=== PATIENT | female | born 1970 | race American Indian/Alaskan Native ===

== ENCOUNTER 2016-09-25 13:16 | Emergency (ER) | payer MEDICARE, OTHER ==
[2016-09-25 13:18] VITALS: BMI 34.4
[2016-09-25 13:36] VITALS: BP 160/89; PULSE 71; RESP 20; TEMP 97.5; O2SAT 97
--- NOTE | 2016-09-25 15:25 | RAD ---
Lumbar spine three views History: Injury. Comparison: 07/24/2015 Findings: Again identified is a large lobulated radiopaque mass seen within the right hemipelvis. This is of uncertain clinical etiology and may represent a large calcified fibroid lesion however additional etiologies not excluded. Clinical correlation. Prominent vascular calcifications. Moderate fecal retention in the colon. Prominent vascular calcifications in the pelvis. Again identified are prominent areas of sclerosis seen most prominently noted at the vertebral body endplates. This is of uncertain clinical etiology and may be metabolic in etiology. Additional etiologies not excluded. Clinical correlation. Prominent atherosclerotic calcification in the aorta. Severe degenerative changes again noted centered at the L4-5 disc space with prominent endplate sclerosis as well as anterior and posterior osteophytosis. Again identified is loss of height of the inferior endplates of the T12, L1, L3, L4, and L5 vertebral bodies as well as the superior endplates of the T12, L1, L2, L3, and L5 vertebral bodies. Multilevel lower level facet hypertrophy and sclerosis. Prominent sclerosis of the bilateral SI joints, left greater than right. Impression: Again identified is a large lobulated radiopaque mass seen within the right hemipelvis. This is of uncertain clinical etiology and may represent a large calcified fibroid lesion however additional etiologies not excluded. Clinical correlation. Again identified are prominent areas of sclerosis seen most prominently noted at the vertebral body endplates. This is of uncertain clinical etiology and may be metabolic in etiology. Additional etiologies not excluded. Clinical correlation. Severe degenerative changes again noted centered at the L4-5 disc space with prominent endplate sclerosis as well as anterior and posterior osteophytosis. Again identified is loss of height of the inferior endplates of the T12, L1, L3, L4, and L5 vertebral bodies as well as the superior endplates of the T12, L1, L2, L3, and L5 vertebral bodies. Multilevel lower level facet hypertrophy and sclerosis. Prominent sclerosis of the bilateral SI joints, left greater than right. If pain persists, consider MRI.
--- NOTE | 2016-09-25 16:17 | C.PDOC ---
History Of Present Illness Patient is a 46 year old female who presents to the ER with a complaint of non- radiating back pain after a wagon of bananas fell on her. Patient states she was in [employer] walking when the banana wagon tipped over and hit her twice on the back, denies falling. Denies any abdominal pain, numbness, or tingling. Time Seen by Provider: 09/25/16 13:28 Chief Complaint (Nursing): Back Pain History Per: Patient Onset/Duration Of Symptoms: Hrs Current Symptoms Are (Timing): Still Present Pain Scale Rating Of: 4 Past Medical History Reviewed: Historical Data, Nursing Documentation, Vital Signs Vital Signs: Last Vital Signs Temp 97.5 F L 09/25/16 13:35 Pulse 71 09/25/16 13:35 Resp 20 09/25/16 13:35 BP 160/89 H 09/25/16 13:35 Pulse Ox 97 09/25/16 16:21 - Medical History PMH: Anemia, Bronchitis, Cardia Arrhythmia, HTN, Hypothyroidism, End Stage Renal Disease (DIALYSIS M-W-F), Chronic Kidney Disease Surgical History: Endoscopy, Tonsillectomy - [facility] Procedures ANGIOPLASTY OF OTHER NON-CORONARY VESSEL(S) (06/07/12) CONTR ABD ARTERIOGRM NEC (11/21/13) CONTRAST ARTERIOGRAM NEC (11/21/13) CONTRAST PHLEBOGRAM NEC (06/07/12) DIALYSIS ARTERIOVENOSTOM (11/28/14) ESOPHAGOGASTRODUODENOSCOPY [EGD] W/CLOSED BIOPSY (03/30/07) HEMODIALYSIS (11/28/14) INCIS W REM OF FORIEGN BODY OR DEV FROM SKIN & SUBCUT TISSUE (01/16/15) INSERTION OF WUP-KSKV-OXOXUSO PERIPHERAL VESSEL STENT(S) (09/09/05) NEBULIZER THERAPY (12/16/14) OCCLUDE ARM VESSEL NEC (11/28/14) OTHER ENDOSCOPY OF SM INTEST (07/03/00) PACKED CELL TRANSFUSION (11/28/14) PROCEDURE ON SINGLE VESSEL (06/07/12) SKIN INCIS & FB REMOVAL (09/22/00) UTERINE ARTERY EMBOLIZATION [UAE] WITHOUT COILS (11/21/13) VENA CAV ANGIOCARDIOGRAM (02/08/07) VENOUS CATHETERIZATION FOR RENAL DIALYSIS (07/21/00) VENOUS CATHETERIZATION NEC (11/28/14) Family History: States: Unknown Family Hx - Social History Hx Tobacco Use: Yes Hx Alcohol Use: No Hx Substance Use: No - Immunization History Hx Tetanus Toxoid Vaccination: No Hx Influenza Vaccination: No Hx Pneumococcal Vaccination: No Review Of Systems Gastrointestinal: Negative for: Abdominal Pain Musculoskeletal: Positive for: Back Pain Neurological: Negative for: Numbness, Other (Tingling) Physical Exam - Physical Exam Appears: Well, Non-toxic Skin: Normal Color, Warm, Dry Head: Atraumatic, Normacephalic Oral Mucosa: Moist Cardiovascular: Rhythm Regular, No Murmur Respiratory: Normal Breath Sounds, No Rales, No Rhonchi, No Wheezing Gastrointestinal/Abdominal: Soft, No Tenderness Back: Vertebral Tenderness (mild), Other (Lumbar tenderness, no bruising) Neurological/Psych: Oriented x3, Normal Speech, Normal Cognition ED Course And Treatment O2 Sat by Pulse Oximetry: 97 (Room air) Pulse Ox Interpretation: Normal Progress Note: Tylenol administered. Medical Decision Making Medical Decision Making: pt is resting comfortably, with decreased pain after Tylenol. findings on xray discussed with pt; she will be given a copy of results to show to her pmd for any further follow up required. Disposition Counseled Patient/Family Regarding: Diagnosis, Need For Followup, Rx Given - Disposition Referrals: Guille Constantino MD [Staff Provider] - Disposition: HOME/ ROUTINE Disposition Time: 16:18 Condition: GOOD Additional Instructions: Take Tylenol as prescribed if needed for pain. Follow up with your doctor in a few days. bring copy of xray results for review. Return ot ER for any worsening symptoms. Instructions: Acute Low Back Pain (ED) Forms: General Discharge Instructions Print Language: TAIWANESE - Clinical Impression Clinical Impression: Low back strain - Scribe Statement The provider has reviewed the documentation as recorded by the Scribe Naresh Angel All medical record entries made by the Scribe were at my direction and personally dictated by me. I have reviewed the chart and agree that the record accurately reflects my personal performance of the history, physical exam, medical decision making, and the department course for this patient. I have also personally directed, reviewed, and agree with the discharge instructions and disposition.
== END 2016-09-25 16:30 | disposition home or self-care (01) ==
LOC: C.ER 13:16
DX: S39.012A Strain of muscle, fascia and tendon of lower back, initial encounter (principal); W22.8XXA Striking against or struck by other objects, initial encounter; Y93.01 Activity, walking, marching and hiking; Y92.89 Other specified places as the place of occurrence of the external cause

== ENCOUNTER 2016-09-30 09:39 | Day surgery (SDC) | payer MEDICARE, OTHER ==
[2016-09-27 07:34] VITALS: BMI 338349.8
[2016-09-30 11:02] LABS: POTASSIUM 4.8 mmol/L (3.6-5.2)
[2016-09-30 11:05] LABS: INR 1.1
[2016-09-30 11:06] LABS: CALCIUM 10.5 mg/dl (8.6-10.4)
[2016-09-30] MEDS ORDERED: Midazolam 2 MG/2 ML VIAL ONE ×2 (11:57→12:13)
[2016-09-30] MEDS ORDERED: Iodixanol 320 MG/ML 200 ML BOTTLE IV ONE (11:58)
--- NOTE | 2016-09-30 13:20 | CP.SDSHP ---
Same Day Surgery H & P - History Proposed Procedure: please see enclosed office note. No change. - Allergies Allergies: Allergies IV CONTRAST Allergy (Severe, Uncoded 09/30/16 10:55) ANAPHYLAXIS - Physical Exam Vital Signs: Vital Signs 09/30/16 10:03 Temperature 97.6 F Pulse Rate 67 Respiratory 18 Rate Blood Pressure 129/82 O2 Sat by Pulse 100 Oximetry Short Stay Discharge - Short Stay Discharge Admitting Diagnosis/Reason for Visit: PAD GANERIN TOE LEFT FOOT Disposition: HOME/ ROUTINE
--- NOTE | 2016-09-30 14:01 | OP ---
PROCEDURE DATE: 09/30/2016 PERFORMING PHYSICIAN: Matias Logan MD REFERRING PHYSICIAN: Garry Lozano DPM PREOPERATIVE DIAGNOSIS: Gangrene of the great toe of the left foot. POSTOPERATIVE DIAGNOSIS: Gangrene of the great toe of the left foot. PROCEDURE PERFORMED: Retrograde access right common femoral artery, selective catheter placement in infrarenal abdominal aorta, abdominal aortography with bilateral iliofemoral runoff using digital sub traction, bilateral lower extremity angiography. COMPLICATIONS: None. HISTORY OF PRESENT ILLNESS: The patient is a 46-year-old female with a past medical history of hyper tension, hypercholesterolemia and end-stage renal disease on hemodialysis who has developed gangrene of the great toe of the left foot. The patient had abnormal noninvasive imaging and therefore, she w as brought to [facility] for definitive therapy. DESCRIPTION OF PROCEDURE: After obtaining informed consent, the patient was prepped and draped in th e usual sterile fashion. The right groin was anesthetized with 2% lidocaine solution. A 5-Macedonian sh eath was inserted into the right common femoral artery via modified Seldinger technique. An Omniflus h catheter was advanced to the infrarenal abdominal aorta. Abdominal aortography was performed. Orlin ateral iliofemoral runoff was performed. Bilateral lower extremity angiography is performed. The Omniflush catheter was removed. Completion angiography of the right lower extremity was performe d via the sheath in the right groin. At the conclusion of the procedure, manual pressure was applied to achieve hemostasis. FINDINGS: The infrarenal abdominal aorta is free of aneurysm or dissection. Bilateral iliac arterie s have mild disease. The internal iliac arteries have mild diffuse disease. There is no significant common femoral artery disease. In the left leg, there is mild diffuse disease. There are mild sergio nal irregularities of the profunda femoralis. The proximal left superficial femoral artery has a 30% stenosis. There is mild disease of the distal left superficial femoral artery. There is no signifi cant popliteal artery disease. There is 2-vessel runoff to the left foot via the left anterior tibia l artery and a very robust peroneal branch. The posterior tibial artery is diminished, but the poste rior arch is supplied by the peroneal artery. In the right leg, there is a 90% short segment stenosi s of the proximal right superficial femoral artery. There is mild popliteal artery disease. There i s 2-vessel runoff to the right foot via a robust peroneal branch and a diminutive right anterior tibi al artery. CONCLUSIONS: 1. Significant proximal right superficial femoral artery stenosis. 2. No significant atherosclerosis in the left lower extremity. PLAN: There is no endovascular option available for salvage of the gangrenous toe of the left foot. The patient has claudication involving the right lower extremity, which is likely due to the right s uperficial femoral artery stenosis. She will be scheduled for elective intervention. Matias Logan MD cc: [id number] TT: 09/30/2016 14:01:06 en
[2016-09-30 14:45] VITALS: O2SAT 98
[2016-09-30 16:54] VITALS: PULSE 67; TEMP 98.1
[2016-09-30 17:07] VITALS: BP 158/80; RESP 16
== END 2016-09-30 17:10 | disposition home or self-care (01) ==
LOC: C.CATHLAB 09:39
PROVIDERS: ATTEND Internal Medicine Cardiovascular Disease
DX: I96 Gangrene, not elsewhere classified (principal); I12.0 Hypertensive chronic kidney disease with stage 5 chronic kidney disease or end stage renal disease; N18.6 End stage renal disease; Z99.2 Dependence on renal dialysis; E78.00 Pure hypercholesterolemia, unspecified; Z88.8 Allergy status to other drugs, medicaments and biological substances; I70.211 Atherosclerosis of native arteries of extremities with intermittent claudication, right leg
CPT/HCPCS: 36200; 36247; 36415; 75625; 75716; 75774; 80048; 85610; 85730; C1769; J1644; J2250; J3010; Q9966

== ENCOUNTER 2017-06-02 08:05 | Day surgery (SDC) | payer MEDICARE ==
[2017-05-02 09:56] VITALS: BMI 34.4
[2017-06-02] MEDS ORDERED: Lactated Ringer's 500 ML IV ONE (10:26)
[2017-06-02] MEDS ORDERED: Midazolam 2 MG/2 ML VIAL ONE (10:28)
[2017-06-02] MEDS ORDERED: Propofol 10 mg/ml Inj (20 ML) ONE (10:28)
[2017-06-02] MEDS ORDERED: Sodium Chloride 0.9% 1,000 ML IV SCH (10:45)
[2017-06-02 12:38] VITALS: TEMP 97.3
[2017-06-02 12:40] VITALS: O2SAT 99
[2017-06-02 12:53] VITALS: BP 189/96; PULSE 65; RESP 16
== END 2017-06-02 12:11 | disposition home or self-care (01) ==
LOC: C.ENDO 08:05
PROVIDERS: ATTEND Internal Medicine Gastroenterology
DX: K29.70 Gastritis, unspecified, without bleeding (principal); K44.9 Diaphragmatic hernia without obstruction or gangrene; K64.8 Other hemorrhoids; D12.5 Benign neoplasm of sigmoid colon; D12.3 Benign neoplasm of transverse colon
CPT/HCPCS: 43239; 45388; 88305; 88342; J2250; J2704; J7040; J7120